=== PATIENT | female | born 2000 | race Two or more races ===

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

== ENCOUNTER 2022-09-27 09:30 | Emergency (ER) | payer SELFPAY ==
[2022-09-27 09:33] VITALS: BP 103/68; PULSE 100; RESP 16; TEMP 36.5; O2SAT 98; BMI 29.9
[2022-09-27 09:48] VITALS: BP 107/63; PULSE 90; RESP 14; TEMP 36.9; O2SAT 95
--- NOTE | 2022-09-27 09:52 | PC.NURSE ---
pt AOx3, reporting N/v since last night. additionally pt reports right breast pain. vitals stable. will CTM
--- NOTE | 2022-09-27 10:03 | ED_ITS ---
HPI - Abdominal Pain General Chief Complaint: Abdominal Pain Stated Complaint: Vomiting/Weakness/R breast pain Time Seen by Provider: 09/27/22 10:00 Source: patient Mode of arrival: ambulatory Limitations: no limitations History of Present Illness HPI narrative: Patient with vomiting all night, states that she vomited x 12 last night. she states that others ate the food and are not vomiting. Patient denies , LMP just finished and her periods have been longer and irregular. In addition she has right breast pain MD elicited complaint: abdominal pain Pertinent past history: none Onset (ago): hour(s) Pain Consistency: intermittent Location: epigastric Severity: mild Quality: cramping Associated symptoms: nausea and vomiting Related Data Previous Rx's Medication Instructions Recorded ondansetron 4 mg disintegrating 4 mg PO Q8H 4 days #12 tabs 09/27/22 tablet pantoprazole 40 mg tablet,delayed 40 mg PO DAILY #20 tabs 09/27/22 release (Protonix) Allergies Allergy/AdvReac Type Severity Reaction Status Date / Time No Known Allergies Allergy Verified 09/27/22 09:38 Review of Systems Review of Systems Yes all other systems are reviewed and are negative Gastrointestinal: Reports abdominal pain and Reports vomiting Skin/Breast: Reports breast pain PMFSH Past Medical History Medical History Patient denies medical problems Social History Social History Alcohol intake: never Smoked in Last 30 Days: No Use of substances other than those prescribed or required for medical reasons: Yes Substance Use Type: Marijuana Advance Directives: No Advance Directives Information Provided: No Patient : No Physical Exam ED Vital Signs: Vital Signs - 24 hr 09/27/22 09:33 09/27/22 09:48 09/27/22 12:00 Temperature 97.7 F 98.5 F 98.8 F Pulse Rate 100 90 84 Respiratory Rate 16 14 16 Blood Pressure 103/68 107/63 103/64 Pulse Oximetry 98 95 100 Oxygen Delivery Method Room Air Room Air Room Air BMI result Body Mass Index 29.9 Const General: healthy appearing Nutritional Appearance: average body habitus Orientation/consciousness: oriented to person and patient oriented x3 Limitations: no limitations HENMT Head: Yes normal to inspection Ears: external ears normal General nose exam: Normal external nose present Mouth: Normal oral and palatal mucosa present and oropharynx normal Throat: Yes posterior oropharynx normal Eyes General: appearance normal, both eyes and all related structures Neck Neck: Yes normal visual inspection Chest Other: right breast with no cyst or erythema or mass Chest palpation & inspection: normal inspection of the chest Resp Auscultation: clear to auscultation bilaterally Cardio Jugular venous distension: no JVD Rate: regular rate Rhythm: regular rhythm Heart sounds: S1 normal heart sound present and S2 normal heart sound present GI Inspection: Yes normal to inspection Palpation (GI): Soft to palpation, nontender and No hepatosplenomegaly present Auscultation: normal bowel sounds General: Yes no CVA tenderness Back/Spine/Pelvis Back: no CVA tenderness Skin General skin exam: no rashes or lesions noted Neuro General: oriented to person and patient oriented x3 Cranial nerves: Yes CN's II-XII intact bilaterally Motor exam (neuro): 5/5 motor strength present throughout Extrem General: Yes normal to inspection Psych Appearance: grossly normal Course Reevaluation(s) Reevaluation #1: tolerating PO, urine not infected not will dc home on zofran and protonix Time: 14:57 Medical Decision Making Differential Diagnosis Differential Diagnoses: The differential diagnosis associated with the presen tation includes (gastritis, vomiting, were all considered) Lab Data MDM Lab Attestation statement: I reviewed the patient's lab results. Labs: Lab Results 09/27/22 09/27/22 Range/Units 13:36 13:36 Urine Color Yellow Urine Appearance Cloudy Urine pH 6.0 (5.0-9.0) Ur Specific [place] >= 1.030 H (1.005-1.025) Urine Protein Trace (Neg-Trace) mg/dL Urine Glucose (UA) Negative (Negative) mg/dL Urine Ketones 15 (Negative) mg/dL Urine Blood Negative (Negative) Urine Nitrite Negative (Negative) Ur Leukocyte Esterase Negative (Negative) Urine Test NEGATIVE (NEGATIVE) Tests considered The following testing was considered but not selected: I considered getting a CBC and chemistries but the patient was tolerating po and looked well Medications Administered Discontinued Medications Generic Name Dose Route Start Last Admin Trade Name Freq PRN Reason Stop Dose Admin Famotidine 20 mg 09/27/22 10:11 09/27/22 10:25 Famotidine 20 Mg Tablet PO 09/27/22 10:12 20 mg ONCE ONE Administration Ondansetron HCl 4 mg 09/27/22 10:11 09/27/22 10:25 Ondansetron Odt 4 Mg Tab.Jndis TRANSLINGU 09/27/22 10:12 4 mg ONCE ONE Administration Discharge Plan Discharge Clinical Impression: Nausea & vomiting, Gastritis Patient Disposition: Home, Self-Care Instructions: Acute Nausea and Vomiting (ED) Prescriptions: New pantoprazole [Protonix] 40 mg tablet,delayed release (DR/EC) 40 mg PO DAILY Qty: 20 0RF ondansetron 4 mg tablet,disintegrating 4 mg PO Q8H 4 Days Qty: 12 0RF Referrals: Shiela Simmons MD [Primary Care Provider] - 1 week
[2022-09-27] MEDS: Famotidine 20 MG TABLET PO (10:25)
[2022-09-27] MEDS: Ondansetron ODT 4 MG TAB.RAPDIS TRANSLINGU (10:25)
--- NOTE | 2022-09-27 10:26 | PC.NURSE ---
PT MEDICATED PER ORDER
[2022-09-27 12:00] VITALS: BP 103/64; PULSE 84; RESP 16; TEMP 37.1; O2SAT 100
--- NOTE | 2022-09-27 12:32 | PC.NURSE ---
pt vitals stable, reporting that she is feeling better. 3/10 right breast pain.
[2022-09-27 13:43] LABS: Appearance Urine Cloudy; Color Urine Yellow; Glucose Urine UA Negative (Negative); Leukocyte Esterase Urine Negative (Negative); Nitrite Urine Negative (Negative); Specific Gravity - Urine >= 1.030 (1.005-1.025); UPreg QC Valid YES; Urine Blood Negative (Negative); Urine Ketones 15 mg/dL (Negative); Urine Pregnancy NEGATIVE (NEGATIVE); Urine Protein Trace mg/dL (Neg-Trace)
[2022-09-27 15:13] VITALS: BP 108/68; PULSE 92; RESP 16; TEMP 36.8; O2SAT 100
== END 2022-09-27 15:13 | disposition home or self-care (01) ==
PROVIDERS: Emergency Provider Emergency Medicine; PCP Pediatrics
DX: K29.70 Gastritis, unspecified, without bleeding (principal); R11.2 Nausea with vomiting, unspecified; Z79.899 Other long term (current) drug therapy
CPT/HCPCS: 81003; 81025; 99283; 99284

== ENCOUNTER 2023-09-19 07:42 | Emergency (ER) | payer MEDICAID, SELFPAY ==
--- NOTE | ~2023-09-19 | XR_ITS ---
EXAMINATION: XR CHEST CLINICAL INFORMATION: Shortness of breath COMPARISON: Chest radiograph from 06/06/2007 TECHNIQUE: Frontal view of the chest was obtained. FINDINGS: Slight elevation the right hemidiaphragm. No pneumothorax. Trachea is midline. Cardiac mediastinal silhouette is not enlarged. No large pleural effusion. Osseous structures are intact. Soft tissues are unremarkable XR/XR chest 1V IMPRESSION: No acute cardiopulmonary process.
[2023-09-19 07:53] VITALS: BP 123/82; BP 130/70; PULSE 105; PULSE 139; RESP 18; TEMP 36.4; O2SAT 95; O2SAT 99; BMI 33.4
--- NOTE | 2023-09-19 08:00 | ECG_ITS ---
Test Reason : sob, chest tightness Blood Pressure : / mmHG Vent. Rate : 097 BPM Atrial Rate : 097 BPM P-R Int : 124 ms QRS Dur : 084 ms QT Int : 344 ms P-R-T Axes : 046 029 027 degrees QTc Int : 436 ms Normal sinus rhythm Normal ECG No previous ECGs available Referred By: Generic ED Physician Electronically Signed By:ZURI MELLO
[2023-09-19 08:36] LABS: Basophils Percent Auto 0.4 % (0-2); PLT CLUMP 1; SCAN SMEAR FLAG 1
[2023-09-19 08:38] LABS: Eosinophils Absolute Auto 0.1 X10*3/uL (0.0-0.4); Eosinophils Percent Auto 0.6 % (0-4); Hematocrit 42.8 % (37.0-47.0); Hemoglobin 14.2 g/dl (12.0-16.0); Imm Gran Abs Auto 0.02 X10*3/uL (0.00-0.03); Imm Gran Pct Auto 0.2 % (0.0-0.4); Lymphocytes Absolute Auto 1.3 X10*3/uL (1.2-4.9); Lymphocytes Percent Auto 16.5 % (20-40); MANUAL DIFF FLAG SCAN; Mean Corpuscular HGB Conc 33.2 g/dl (31.0-35.0); Mean Corpuscular Hemoglobin 29.3 pg (27.0-33.0); Mean Corpuscular Volume 88.2 fL (80.0-98.0); Monocytes Absolute Auto 0.3 X10*3/uL (0.1-1.2); Monocytes Percent Auto 3.9 % (2-11); Neutrophils Absolute Auto 6.4 x10*3/uL (2.0-8.3); Neutrophils Percent Auto 78.4 % (45-73); Red Blood Count 4.85 X10*6/uL (4.20-5.50); Red Cell Distribution Width 12.7 % (11.0-16.0)
[2023-09-19 08:49] LABS: Platelet Count 218 X10*3/uL (160-400); White Blood Count 8.1 X10*3/uL (4.8-10.8)
[2023-09-19 08:50] LABS: SLIDE REVIEW VERIFIED
[2023-09-19 08:51] LABS: Anion Gap 14 (12-20); Blood Urea Nitrogen 12 mg/dL (9-16); Calcium 8.9 mg/dL (8.4-10.2); Carbon Dioxide 23 mmol/L (22-29); Chloride 108 mmol/L (96-108); Creatinine Clr Calc Pharmacy 131.2; Estimated Glomerular Filt Rate > 60; Glucose Random 135 mg/dL (60-115); Potassium 3.6 mmol/L (3.3-5.1); Sodium 141 mmol/L (135-145)
[2023-09-19 08:55] LABS: Troponin-I High Sensitivity < 2.7 ng/L (<3.5-17.0)
[2023-09-19 10:16] LABS: Alanine Aminotransferase 13 U/L (0-31); Albumin Level 4.2 g/dL (3.5-5.0); Alkaline Phosphatase 59 U/L (39-117); Aspartate Amino Transferase 16 U/L (5-31); Bilirubin Direct 0.2 mg/dL (0.0-0.5); Bilirubin Total 0.3 mg/dL (0.0-1.0); Lipase 19 U/L (8-78); Total Protein 7.3 g/dL (6.5-8.0)
[2023-09-19 10:20] LABS: HCG Quantitative < 2 mIU/mL
[2023-09-19 11:20] VITALS: BP 115/74; PULSE 74; RESP 16; TEMP 36.9; O2SAT 100
--- NOTE | 2023-09-19 11:23 | ED_ITS ---
HPI - General Adult General Chief complaint: Dyspnea Stated complaint: CHEST PAIN/TIGHTNESS Time Seen by Provider: 09/19/23 07:49 Source: patient Mode of arrival: ambulatory Limitations: no limitations History of Present Illness HPI narrative: 23 yo female with PMH of anxiety had panic attack today then chest pain she panicked more she feels fine now. She felt short of breath. No OCPs, travel, URI. Admits to stress MD complaint: chest pain Onset (ago): hour(s) (few hours ago) Location: chest Severity: moderate Quality: other (heavy) Pain Consistency: now resolved Relieving factors: none Exacerbating factors: other (stress) Associated symptoms: shortness of breath Related Data Previous Rx's Medication Instructions Recorded ondansetron 4 mg disintegrating 4 mg PO Q8H 4 days #12 tabs 09/27/22 tablet pantoprazole 40 mg tablet,delayed 40 mg PO DAILY #20 tabs 09/27/22 release (Protonix) Allergies Allergy/AdvReac Type Severity Reaction Status Date / Time No Known Allergies Allergy Verified 09/27/22 09:38 Review of Systems 2 Review of Systems: Constitutional : No Weight loss, No Fever, No Chills ENT/Mouth : No sore throat, No Rhinorrhea Eyes: No Eye Pain, No Swelling Cardiovascular : pos Chest Pain, pos SOB, no Dyspnea on Exertion, No Orthopnea, No Edema, No Palpitations Respiratory : No Cough, No Sputum Gastrointestinal : no Nausea, No Vomiting, No Diarrhea, No abdominal Pain, No Hematochezia, No Melena Genitourinary : No Dysuria, No Urinary Frequency Musculoskeletal : No joint pain, No Myalgias, No Joint Swelling Skin : No Skin Lesions, No rash Neuro : No Weakness, No Numbness, No Dizziness, No Headache Psych :pos Anxiety/Panic, No Depression Heme/Lymph: No Bruising, No Lymphadenopathy Endocrine : No Polyuria, No Polydipsia All other systems reviewed and are negative PMFSH Past Medical History Attestation statement: The following information was validated with the patient. Source: old records reviewed Medical History Patient denies medical problems Social History Social History (Updated 09/19/23 @ 12:31 by Elena Reddy DO) Alcohol intake: never Patient Tobacco Use Status: Never used Tobacco Substance Use Type: Marijuana Physical Exam ED Vital Signs: Vital Signs - 24 hr 09/19/23 07:53 09/19/23 11:20 Temperature 97.6 F 98.4 F Pulse Rate 105 H 74 Respiratory Rate 18 16 Blood Pressure 123/82 115/74 Pulse Oximetry 99 100 Oxygen Delivery Method Room Air BMI result Body Mass Index 33.4 Appearance: Alert. Oriented X3. No acute distress. Eyes: Pupils equal, round and reactive to light. ENT: Pharynx normal. Neck: Normal inspection. Neck supple. CVS: Normal heart rate and rhythm. Pulses normal. Respiratory: No respiratory distress. Breath sounds normal. Abdomen: Soft and nontender. Skin: Skin warm and dry. Normal skin color. Normal skin turgor. Extremities: No lower extremity edema. No calf ttp Neuro: Oriented X 3. No motor deficit. No sensory deficit. Course Course Course Narrative: This is an RME: Additional HPI, ROS, PE not included below will be deferred to primary provider. This is a 23-year-old female presenting to the emergency department with complaints of chest tightness which started this morning. She states that when she woke up she felt like she could not breathe in her chest became very tight. She states that this lasted for several minutes and resolved on its own. She states that she is unsure if this was a panic attack as she has never had 1 before. She is feeling well now. Asymptomatic. Vital signs normal, lungs clear to auscultation bilaterally. EKG normal sinus rhythm with no ST elevation or depression. Lab so far look good. Chest x-ray unremarkable. Will perform 2nd troponin test. She has not on control. She has not short of breath or tachycardic. Plan: Repeat troponin and re-evaluation. Medical Decision Making Medical Decision Making [facility] Narrative: 23 yo female with no sig PMH not on OCPs no travel or procedures here with c/o panic attack this AM felt her chest was tight - no fevers or infectious symptoms, PERC negative, distal pulses intact at this time will need trop, CXR, EKG and if negative stable for DC Differential Diagnosis Differential Diagnoses: The differential diagnosis associated with the presentation includes chest pain, anxiety, PERC negative Admission/Observation Consideration of admission/observation: Escalation of care including admission/observation considered trop flat x 2 , PERC Negative, no ACS risk factors stable for DC Lab Data [facility] Lab Attestation statement: I reviewed the patient's lab results. 09/19/23 08:13 09/19/23 08:13 Labs: Lab Results 09/19/23 09/19/23 Range/Units 08:13 11:30 WBC 8.1 (4.8-10.8) X10*3/uL RBC 4.85 (4.20-5.50) X10*6/uL Hgb 14.2 (12.0-16.0) g/dl Hct 42.8 (37.0-47.0) % MCV 88.2 (80.0-98.0) fL MCH 29.3 (27.0-33.0) pg MCHC 33.2 (31.0-35.0) g/dl RDW 12.7 (11.0-16.0) % Plt Count 218 (160-400) X10*3/uL MPV 12.0 (9.4-12.3) fL Immature Gran % (Auto) 0.2 (0.0-0.4) % Neut % (Auto) 78.4 H (45-73) % Lymph % (Auto) 16.5 L (20-40) % [place] % (Auto) 3.9 (2-11) % Eos % (Auto) 0.6 (0-4) % Baso % (Auto) 0.4 (0-2) % Lymph # (Auto) 1.3 (1.2-4.9) X10*3/uL [place] # (Auto) 0.3 (0.1-1.2) X10*3/uL Eos # (Auto) 0.1 (0.0-0.4) X10*3/uL Baso # (Auto) 0.0 (0.0-0.2) X10*3/uL Abs Immat Gran (auto) 0.02 (0.00-0.03) X10*3/uL Absolute Neuts (auto) 6.4 (2.0-8.3) x10*3/uL Absolute Nucleated RBC 0.000 (0.0-0.012) X10*3/uL Nucleated RBC % (auto) 0.0 (0.0-0.2) /100WBC Smear Tech's Comments VERIFIED PT 13.2 (11.1-13.3) SEC INR 1.1 (0.9-1.1) Sodium 141 (135-145) mmol/L Potassium 3.6 (3.3-5.1) mmol/L Chloride 108 (96-108) mmol/L Carbon Dioxide 23 (22-29) mmol/L Anion Gap 14 (12-20) BUN 12 (9-16) mg/dL Creatinine 0.75 (0.5-1.4) mg/dL Estim Creat Clear Calc 131.2 Estimated GFR > 60 Random Glucose 135 H (60-115) mg/dL Calcium 8.9 (8.4-10.2) mg/dL Total Bilirubin 0.3 (0.0-1.0) mg/dL Direct Bilirubin 0.2 (0.0-0.5) mg/dL AST 16 (5-31) U/L ALT 13 (0-31) U/L Alkaline Phosphatase 59 (39-117) U/L Troponin I High Sens < 2.7 < 2.7 (<3.5-17.0) ng/L Total Protein 7.3 (6.5-8.0) g/dL Albumin 4.2 (3.5-5.0) g/dL Lipase 19 (8-78) U/L Beta HCG, Quant < 2 mIU/mL Independent Interpretation I performed an independent interpretation of an: EKG and Plain X-Ray (normal ) Interpretation: Rate: 97 Rhythm: NSR [place]: normal Normal P waves. Normal GIRISH. Normal QRS complex. ST T wave : normal no KRISTEN qTC: normal prior studies: no acute ischemia The study has been interpreted contemporaneously by me. . Independent Historian Clinical information obtained from an independent historian. History obtained from or confirmed by: Friend External Record Review External record reviewed: Outpatient record Discharge Plan Discharge Clinical Impression: Atypical chest pain, Panic attack Instructions: Chest Pain (ED), Anxiety (ED) Additional Instructions: EKG, chest xray, basic labs normal return for any worsening symptoms or concerns. Prescriptions: No Action pantoprazole [Protonix] 40 mg tablet,delayed release (DR/EC) 40 mg PO DAILY Qty: 20 0RF ondansetron 4 mg tablet,disintegrating 4 mg PO Q8H 4 Days Qty: 12 0RF Stand Alone Forms: Work/School Release
[2023-09-19 11:42] LABS: INTERNATIONAL NORM RATIO 1.1 (0.9-1.1); Prothrombin Time 13.2 SEC (11.1-13.3)
[2023-09-19 11:59] LABS: Troponin-I High Sensitivity < 2.7 ng/L (<3.5-17.0)
[2023-09-19 13:19] VITALS: BP 118/81; PULSE 78; RESP 16; TEMP 36.8; O2SAT 100
== END 2023-09-19 13:20 | disposition home or self-care (01) ==
PROVIDERS: Physician Assistant Medical; Emergency Provider Emergency Medicine; PCP Pediatrics
DX: R07.89 Other chest pain (principal); F41.0 Panic disorder [episodic paroxysmal anxiety]
CPT/HCPCS: 36415; 71045; 80048; 80076; 83690; 84484; 84702; 85025; 85610; 93005; 99283

== ENCOUNTER → 2023-09-19 08:00 | Outpatient (BNV) | payer MEDICAID, SELFPAY | PROVIDERS: Emergency Provider Emergency Medicine; PCP Pediatrics; Visit Provider Internal Medicine | DX: R07.89 Other chest pain (principal) | CPT/HCPCS: 93010 ==

== ENCOUNTER 2024-02-19 18:03 | Outpatient (REF) | payer MEDICAID, SELFPAY ==
[2024-02-20 03:27] LABS: CT PCR NOT DETECTED (Not Detect.); NG PCR NOT DETECTED (Not Detect.)
[2024-02-20 10:39] LABS: Bacterial Vaginosis PCR POSITIVE (Negative); Candida Group PCR DETECTED (Not Detect); Candida glab krusei PCR NOT DETECTED (Not Detect); Trichomonas vaginalis PCR NOT DETECTED (Not Detect)
== END 2024-02-19 18:04 | disposition home or self-care (01) ==
LOC: HO.HHCLNP 18:03
PROVIDERS: Visit Provider Internal Medicine
DX: B37.9 Candidiasis, unspecified (principal)
CPT/HCPCS: 0352U; 87491; 87591

== ENCOUNTER 2024-10-17 14:43 | Outpatient (REF) | payer MEDICAID, SELFPAY ==
--- OUTSIDE RECORDS SUMMARY | 2024-10-17 14:56 | XMS_ITS | Encounter Summary ---
Author Organization [employer] Address [address] [place] [address] Care Team Providers Care Feed Grinder Name Role Phone Shiela Simmons MD Primary Care Provider [phone] Reason for Visit * Reason Onset Date Comments ER Follow-up 09/20/2023 Encounter Details Date Type Department Care Team ([facility] Contact Info) Description 09/20/2023 Telephone [facility] MEDICINE [address] [place] [address] Shiela Simmons MD [address] [place] [address] ER Follow-up Social History Tobacco Use Types Packs/Day Years Used Date Smoking Tobacco: Never Passive Smoke Exposure: Never Smokeless Tobacco: Never Depression Answer Date Recorded Patient Health Questionnaire-9 Score 4 08/27/2023 Patient Health Questionnaire-9 Score 4 08/27/2023 Last PHQ-9: Questionnaire Data Not on file 0 08/27/2023 Depression Answer Date Recorded Patient Health Questionnaire-2 Score 2 08/27/2023 Comments Unknown Sex and Gender Information Value Date Recorded Sex Assigned at Female 05/01/2022 10:16 AM EDT Legal Sex Female 10:16 AM EDT Gender Identity Female 05/01/2022 10:16 AM EDT Sexual Orientation Straight 05/01/2022 10 :16 AM EDT documented as of this encounter Miscellaneous Notes * Telephone Encounter - Wing Grover RN - 09/20/2023 1:16 PM EDT Tc to pt regarding ED visit on 09/18. Pt reports that morning feeling cold and could not breath. Currently feeling a lot better and has been staying at home. Scheduled pt with PCP for 09/24 at 9 am. Ptasked to cancel appt on 09/25 for PAP smear due to work. Did so and pt stated she would call to reschedule that appt. Pt verbalizes understanding and agreement with plan. * Telephone Encounter - Aida Maki - 09/20/2023 11:43 AM EDT Tc from pt returning call and requesting a call back. * Telephone Encounter - Wing Grover RN - 09/20/2023 11:20 AM EDT Tc to pt regarding ED visit on 09/18. Unable to reach pt, left message for pt to call back. * Telephone Encounter - Jonatan Perez - 09/20/2023 11:13 AM EDT Patient calling to report ED visit on: Date: 09/19/23 Hospital: [facility] Seen for: Anxiety Attack Patient advised will forward to team nurse for follow up documented in this encounter Plan of Treatment Upcoming Encounters Date Type Department Care Team (Late st Contact Info) Description 12/02/2024 9:15 AM EDT Office Visit [facility] P[facility] [address] [place] [address] Onelia Godwin MD [address] [place] [address] documented as of this encounter Visit Diagnoses Not on filedocumented in this encounter Additional Health Concerns Assessment Noted Time PHQ-9 Depression Total Score: 4 08/27/19 9:12 AM EST documented as of this encounter Care Teams Feed Grinder Relationship Specialty Start Date End Date Shiela Simmons MD [address] [place] [id number] PCP - General Family Medicine 08/31/20 documented as of this encounter
--- OUTSIDE RECORDS SUMMARY | 2024-10-17 14:56 | XMS_ITS | Encounter Summary ---
Author Organization [facility] Address [address] [place] [address] [address] [place] [address] Care Team Providers Care Motion Picture Cameraman Name Role Phone Shiela Simmons MD Primary Care Provider [phone] Reason for Visit * Reason Onset Date Comments Nurse Triage 08/06/2024 Encounter Details Date Type Department Care Team ([facility] st Contact Info) Description 08/06/2024 Telephone [facility] [address] [place], [place] [phone] Shiela Simmons MD [address] [place] [address] Nurse Triage Social History Tobacco Use Types Packs/Day Years Used Date Smoking Tobacco: Never Passive Smoke Exposure: Never Smokeless Tobacco: Never Depression Answer Date Recorded Patient Health Questionnaire-9 Score 16 12/10/2023 Patient Health Questionnaire-9 Score 16 12/10/2023 Last PHQ-9: Questionnaire Data Not on file 0 12/10/2023 Depression Answer Date Recorded Patient Health Questionnaire-2 Score 6 12/10/2023 Comments Unknown Sex and Gender Information Value Date Recorded Sex Assigned at Female 05/01/2022 10:16 AM EDT Legal Sex Female 10:16 AM EDT Gender Identity Female 05/01/2022 10:16 AM EDT Sexual Orientation Straight 05/01/2022 10 :16 AM EDT documented as of this encounter Miscellaneous Notes * Telephone Encounter - Raquel Jimenes - 08/06/2024 2:30 PM EST Symptom: Nausea But No Vomiting and pale skin Outcome: Schedule an appointment to be seen within 3 days Reason: Caller denied all higher acuity questions The caller accepted this outcome. documented in this encounter Plan of Treatment Upcoming Encounters Date Type Department Care Team (Late st Contact Info) Description 12/02/2024 9:15 AM EDT Office Visit [facility] MED [facility] PEDS [address] [place] [address] Onelia Godwin MD [address] [place] [address] documented as of this encounter Visit Diagnoses Not on filedocumented in this encounter Additional Health Concerns Assessment Noted Time PHQ-9 Depression Total Score: 16 024 3:12 PM EDT documented as of this encounter Care Teams Motion Picture Cameraman Relationship Specialty Start Date End Date Shiela Simmons MD [address] [place] [address] PCP - General Family Medicine 08/31/20 documented as of this encounter
--- OUTSIDE RECORDS SUMMARY | 2024-10-17 14:56 | XMS_ITS | Encounter Summary ---
Author Organization [facility] Address [address] [place] [address] [address] [place] [address] Care Team Providers Care Honey Liquefier Name Role Phone Shiela Simmons MD Primary Care Provider [phone] Encounter Details Date Type Department Care Team (Latest Contact Info) Description 10/17/2024 Travel Social History Tobacco Use Types Packs/Day Years [...] AM EDT documented as of this encounter Plan of Treatment Upcoming Encounters Date Type Department Care Team (Late st Contact Info) Description 12/02/2024 9:15 AM EDT Office Visit [facility] [address] [place] [address] Onelia Godwin MD [address] [place] [address] documented as of this encounter Visit Diagnoses Not on filedocumented in this encounter Additional Health Concerns Assessment Noted Time PHQ-9 Depression Total Score: 16 024 3:12 PM EDT documented as of this encounter Care Teams Honey Liquefier Relationship Specialty Start Date End Date Shiela Simmons MD [address] [place] [id number] PCP - General Family Medicine 08/31/20 documented as of this encounter
--- OUTSIDE RECORDS SUMMARY | 2024-10-17 14:56 | XMS_ITS | Clinical Summary ---
Author Organization [employer] Address [address] [place] [address] 7[address] [place] [address] Care Team Providers Care Appliquer Name Role Phone Shiela Simmons MD Primary Care Provider [phone] Allergies Active Allergy Reactions Criticality Noted Date Comments Ibuprofen 12/27/2011 Other Reaction(s): itchy eyes Medications * This document contains information received from the source organization and may not represent a complete record from that organization. tretinoin (Retin-A) 0.1 % cream apply by topical route every day to the affected area(s) 09/21/19 22 Active cholecalcifero l (Vitamin D-3) 50 MCG (1999 UT) capsule Take 1 capsule by mouth at bed time. 09/15/19 22 Active QUEtiapine (SEROquel) 100 MG tablet Take 1 tablet (100 mg) by mouth at bedtime. 30 tablet 2 09/27/19 25 Active hydrOXYzine pamoate (Vistaril) 25 MG capsule Take 1 capsule (25 mg) by mouth every 6 (six) hours if needed for anxiety. 60 capsule 3 09/27/19 25 Active sulfamethoxazo le-trimethopri m (Bactrim DS) 800-160 MG tablet Take 1 tablet by mouth every 12 (twelve) hours. 05/25/20 22 025 Discontinued(Th erapy completed) QUEtiapine (SEROquel) 100 MG tablet Take 1 tablet (100 mg) by mouth at bedtime. 30 tablet 2 12/10/19 24 025 Discontinued(Re order (will not trigger notification to Pharmacy)) hydrOXYzine pamoate (Vistaril) 25 MG capsule Take 1 capsule (25 mg) by mouth every 6 (six) hours if needed for anxiety. 60 capsule 12/10/19 24 025 Discontinued(Re order (will not trigger notification to Pharmacy)) tiZANidine (Zanaflex) 2 MG tabletIndicati ons:Muscle spasm,Neck pain Take 1 tablet (2 mg) by mouth every 6 (six) hours if needed for muscle spasms for up to 10 days. 30 tablet 05/07/20 24 025 Discontinued(Th erapy completed) Active Problems Problem Noted Date Diagnosed Date Vaginal discharge 02/19/2024 Assessment & Plan (02/19/2024 10:21 AM EDT): I will treat empirically for yeast infection BV and CG ordered patient will be contacted with results Patient declines other STI tests Patient declines control methods with exception of male condoms, I will give patient condoms today Missed period 02/19/2024 Assessment & Plan (02/19/2024 10:22 AM EDT): Negative in office test Anxious mood 12/10/2023 Assessment & Plan (12/10/2023 3:44 PM EDT): Discussed current medications. Referral to Psychiatrist for further evaluation. Prescribing Seroquel to drink at night and Vistaril for symptoms. Relevant Medication Quetiapine (Seroquel) 100 MG Tablet Hydroxyzine Pamoate (Vistaril) 25 MG Capsule Social anxiety disorder 09/25/2023 Assessment & Plan (12/21/2023 1:53 PM EDT): During IBH Consult Ambreen presenting with excessive worry/anxiety, difficulty controlling worry, restless/keyed up/On edge, easily fatigued, irritability, and sleep disturbance difficulty falling asleep, excessive fear meeting unfamiliar people, anxiety caused by social interactions, feeling embarrassed and thoughts of being judged and rejected by others, social interactions provoke severe anxiety ; for a period of 18+ mo, for all symptoms in the context of college. Ambreen dropped out of college due to severity of sxs. She started medication after last medical appointment. Pt reports feeling a slight improvement of anxiety sxs and sleeping better most nights. Lack of family support identified as trigger. Ambreen was provided with active listening and open-ended questions. Pt explored different grounding techniques that she might be interested in doing such as journaling and walking outdoors. Would like to be connected with therapy services and continue current medication (see PCP note). PLAN: (check all that apply) Continue with current services (defined as services in the past 12 months) . Pt referred to [facility] in [place]. Assessment & Plan (12/18/2023 11:03 AM EDT): During IBH Consult Ambreen presenting with excessive worry/anxiety, difficulty controlling worry, restless/keyed up/On edge, easily fatigued, difficulty concentrating/Mind going blank , irritability, and sleep disturbance difficulty falling asleep and difficulty staying asleep excessive fear meeting unfamiliar people, anxiety caused by social interactions, feeling embarrassed and thoughts of being judged and rejected by others, social interactions provoke severe anxiety ; for a period of 18+ mo, for all symptoms in the context of college. .Ambreen had to drop out of college due to experiencing severe anxiety. She's currently living with her mom, step-dad and brother. Severe anxiety is becoming a barrier when interacting with new people or new environments. Lack of family support also identified as barrier. PLAN: (check all that apply) New/Additional Services needed Off-site services for . Pt will be refer to [facility] for sooner appointments for OP individual therapy and psychopharmacology. Assessment & Plan (09/25/2023 11:19 AM EDT): During IBH Consult Ambreen presenting with excessive worry/anxiety, difficulty controlling worry, and sleep disturbance difficulty falling asleep excessive fear meeting unfamiliar people, anxiety caused by social interactions, feeling embarrassed and thoughts of being judged and rejected by others, social interactions provoke severe anxiety ; for a period of 18+ mo, for all symptoms in the context of family issues and college. Ambreen dropped college due to experiencing severe anxiety. She's currently living with her mom, step-dad and brother. Engaged in self-harm in 2022 as a way of coping with emotional distress. Anxiety is becoming a barrier when interacting with new people or new environments. PLAN: (check all that apply) Behavioral Health Integration Plan Internal Follow up with [facility] Patient Self Plan Patient to utilize skills provided in intervention , Patient to reach out to [facility] team as needed, and Patient to reach out to [facility] as needed. Ambreen prefers to be seen by clinician and evaluate future referral for OP individual therapy. Next appointment will be on 10/22. Obesity 06/22/2014 Encounters * This document contains information received from the source organization and may not represent a complete record from that organization. Date Type Department Care Team Description 10/17/2024 10:45 AM EDT Procedure Visit [facility] [address] [place] [address] Shiela Simmons MD Encounter for gynecological examination with Papanicolaou smear of cervix (Primary Dx) 10/17/2024 Travel 09/26/2024 9:45 AM EDT Office Visit [facility] [address] [place] [address] Shiela Simmons MD Chronic right shoulder pain (Primary Dx); Dietary counseling; Exercise counseling; Social anxiety disorder; Acne vulgaris 09/26/2024 Travel 09/19/2024 Patient Outreach [facility] [address] [place] [address] Shiela Simmons MD Pre-visit Planning (SDOH unable to reach LVM) 09/12/2024 Population Health Risk Score [facility] () Department [address] [place] [address] [id number] Provider, Population Health Generic 08/06/2024 5:20 PM EST Office Visit [facility] [address] [place] [address] Eliezer Seymour MD Gastroenteritis (Primary Dx) 08/06/2024 Telephone [facility] [address] [place] [address] Shiela Simmons MD Nurse Triage 07/31/2024 Orders Only [facility] [address] [place] [address] Aniya Jensen RN 07/25/2024 Telephone [facility] [address] [place] [address] Shiela Simmons MD Referral 07/25/2024 Telephone [facility] [address] [place] [address] Shiela Simmons MD from Last 3 Months Immunizations Name Administration Dates Next Due DTaP 09/19/2005, 3,02/26/2002,01/16,2001 HPV 9-Valent 12/23/2015 HPV, Quadrivalent 06/22/2014,11/06/2012 Hep A, ped/adol, 2 dose 11/06/2012 Hep A, ped/adol, 3 dose 06/10/2010 Hep B, Adolescent or Pediatric 07/11/2002,2001,2001 Hib (HbOC) 10/10/2002, 2,02/26/2002,09/03 IPV 09/19/2005, 2,2001,09/03 Influenza live intranasal qu adrivalent LIAV4 06/22/2014 Influenza, IIV3, injectable 09/04/2011, 0,06/07/2009 MMR 09/19/2005,07/11/2002 Meningococcal MCV4P ACYW-135 02/07/2018,11/07/19 13 Pneumococcal Conjugate PCV 7 10/10/2002, 02/26/2002,01/16/2002,09/03 Tdap 11/06/2012 Varicella 06/07/2009,07/11/2002 Social History Tobacco Use Types Packs/Day Years Used Date Smoking Tobacco: Never Passive Smoke Exposure: Never Smokeless Tobacco: Never Tobacco Cessation:Counseling Given: Not Answered Depression Answer Date Recorded Patient Health Questionnaire-9 [...] Orientation Straight 05/01/2022 10 :16 AM EDT Last Filed Vital Signs Vital Sign Reading Time Taken Comments Blood Pressure 114/74 10/17/2024 10:49 AM EDT Pulse 76 10/17/2024 10:49 AM EDT Temperature 36.6 ??C (97.9 ??F) 10/17/2024 10:49 AM E DT Respiratory Rate 20 10/17/2024 10:49 AM EDT Oxygen Saturation 98% 09/26/2024 9:51 AM EDT Inhaled Oxygen Concentration - - Weight 77.6 kg (171 lb) 10/17/2024 10:49 AM EDT Height 165.1 cm (5' 5 ) 10/17/2024 10:49 AM EDT Body Mass Index 28.46 10/17/2024 10:49 AM EDT Plan of Treatment Upcoming Encounters Date Type Department Care Team ([facility] st Contact Info) Description 12/02/2024 9:15 AM EDT Office Visit [facility] [address] [place] [address] Onelia Godwin MD [address] [place] [address] Health Maintenance Due Date Last Done Comments SDOH Screening 2001 Hepatitis A Vaccines (2 of 2 - 2-dose series) 05/09/2013 11/06/2012 Alcohol/Substance Use Screening 2013 Pap Smear 2022 DTaP/Tdap/Td Vaccines (7 - Td or Tdap) 11/06/2022 11/06/2012, 09/19/2005, 01/07/2003, Additional history exists COVID-19 Vaccine ( season) 2024 06/10/2021 Influenza Vaccine (#1) 2024 4, 09/04/2011, 06/10/2010, Additional history exists Depression Monitoring 06/10/2024 12/10/2023, 024 Depression Screening 12/09/2024 12/10/2023, 12/10/19 24 Chlamydia and Gonorrhea Screening 07/25/2025 07/25/2024, 02/19/2024, 05/22/2022 Family Planning (PISQ) 09/26/2025 09/26/2024 Tobacco Screening 09/26/2025 09/26/2024 Lipid Panel 04/13/2026 04/13/2021 Zoster Vaccines (1 of 2) 2051 RSV Patients and Patients Aged 60 years or older (1 - 1-dose 75+ series) 2076 Hepatitis B Vaccines Completed 07/11/2002, 02/26/2002, 2001 HIB Vaccines Completed 10/10/2002, 04/01, 02/26/2002, Additional history exists Pneumococcal Vaccine: Pediatrics (0 to 5 Years) and At-Risk Patients (6 to 49) Years) Aged Out 10/10/2002, 02/26/2002, 01/16/2002, Additional history exists No longer eligible based on patient's age to complete this topic IPV Vaccines Completed 09/19/2005, 12/30, 2001, Additional history exists HPV Vaccines Completed 12/23/2015, 06/02, 11/06/2012 Meningococcal Vaccine Completed 02/07/2018, 013 HIV Screening Completed 07/25/2024 Hepatitis C Screening Completed 07/25/2024 RSV under 20 months Aged Out No longe r eligible based on patient's age to complete this topic Rotavirus Vaccines Aged Out No longer eligible based on patient's age to complete this topic Procedures Procedure Name Priority Date/Time Associated Diagnosis Comments HIV ANTIBODY/ANTIGEN ([place] [facility]) Routine 07/25/2024 HEPATITIS C ANTIBODY ([place] [facility]) Routine 07/25/2024 SYPHILIS ABS ([facility]) Routine 07/25/2024 CHLAMYDIA/GONORRHEA VAGINAL SWAB ([place] [facility]) Routine 07/25/2024 LIPID PANEL, STANDARD Routine 04/13/2021 10:53 AM EDT from Last 3 Months or Most Recently Relevant to Health Maintenance Results * Chlamydia/Gonorrhea Vaginal Swab ([place] [facility]) (07/25/2024) Pathologist [facility] Chlamydia Vaginal Swab Negative Negative, Indeterminate, None Detected, Invalid, Specimen unsatisfactory for evaluation, Weakly Positive Gonorrhea Vaginal Swab Negative Negative, Indeterminate, None Detected, Invalid, Specimen unsatisfactory for evaluation, Weakly Positive Swab Vaginal structure / Unknown 07/25/2024 Result [facility] Provider MD LAB MICROBIOLOGY - GENERA L ORDERABLES Final Result * Syphilis Antibodies ([facility]) (07/25/2024) Pathologist [facility] Syphilis Abs Nonreactive Borderline, Nonreactive, Weakly Reactive, Inconclusive, Specimen unsatisfactory for evaluation Blood Venous blood specimen / Unknown 07/25/2024 Result [facility] Provider MD LAB BLOOD ORDERABLES Lucy l Result * Hepatitis C Antibody ([facility]) (07/25/2024) [facility] Hepatitis C Ab Nonreactive Blood 07/25/2024 Result [facility] Provider MD LAB BLOOD ORDERABLES Lucy l Result * HIV Ab/Ag ([facility]) (07/25/2024) [facility] HIV Ag/Ab Nonreactive Blood 07/25/2024 Result [facility] Provider MD LAB BLOOD ORDERABLES Lucy l Result * (ABNORMAL) LIPID PANEL, STANDARD (04/13/2021 10:53 AM EDT) [facility] Chol/HDLC Ratio 3.5 <5.0 (calc) [facility] Cholesterol, Total 157 <170 mg/dL [facility] HDL Cholesterol 45(L) >45 mg/dL [facility] LDL Cholesterol 93 <110 mg/dL (calc) [facility] Comment: LDL-C is now calculated using the Noel ?? calculation, which is a validated novel method providing ?? better accuracy than the Friedewald equation in the ?? estimation of LDL-C. ?? Derrick JOSHI et al. APRIL. 2013;310(19): 0984-1486 ?? (http://education.Drillinginfo.com/faq/EGN648) Non-HDL Cholesterol 112 <120 mg/dL (calc) [facility] Comment: For patients with diabetes plus 1 major ASCVD risk ?? factor, treating to a non-HDL-C goal of <100 mg/dL ?? (LDL-C of <70 mg/dL) is considered a therapeutic ?? option. Triglycerides 92(H) <90 mg/dL [facility] 04/13/2021 10:5 3 AM EDT us Shiela Simmons MD LAB BLOOD ORDERABLES Final Re sult [facility] [address] from Last 3 Months or Most Recently Relevant to Health Maintenance Insurance [employer] Care Teams Appliquer Relationship Specialty Start Date End Date Shiela Simmons MD [address] [place] [address] PCP - General Family Medicine 08/31/20
--- OUTSIDE RECORDS SUMMARY | 2024-10-17 14:56 | XMS_ITS | Encounter Summary ---
Author Organization [employer] Address [address] [facility] [address] [place] [address] Care Team Providers Care Diesel Stationary Engineer Name Role Phone Shiela Simmons MD Primary Care Provider [phone] Reason for Visit * Reason Onset Date Comments Nurse Triage 05/07/2024 Encounter Details Date Type Department Care Team ([facility] st Contact Info) Description 05/07/2024 Telephone [facility] [address] [place] [address] Shiela Simmons MD [address] [place] [address] Nurse Triage Social History Tobacco Use Types [...] encounter Miscellaneous Notes * Telephone Encounter - Lisa Will RN - 05/07/2024 9:54 AM EST Triage call Pt reports right shoulder pain which has become much worse lately. Pt reports this has been a chronic problem and Pt has taken PT for this in the past. Pt reports possible over use of theshoulder caused this exacerbation of pain. Pt reports unable to lift arm up to shoulder level and has some numbness in the right arm at times. Pt uses tiger balm for some relief and occasional tylenol. Pt will take edible CBD gummi , 30mg, at night to help for sleep and can't sleep on that right side. Pt reports slight swelling at times, no redness or warmth at joint. ASK apt today in [facility] at 300[facility]. Pt is advised to try heat or ice on the shoulder for relief of pain. Pt agrees with disposition . Insurance is verified as active prior to booking. Protocol Used: Shoulder Pain (Adult) Protocol-Based Disposition: See in Office or Video Visit Today or Tomorrow Video visit not offered Positive Triage Questions: * Patient wants to be seen * Shoulder pain is a chronic symptom (recurrent or ongoing AND present > 4 weeks) * All higher-acuity triage questions were negative Care Advice Discussed: * Reassurance and Education - Shoulder Pain * Pain Medicines * Pain Medicines - Extra Notes and Warnings * Reasons To Call Back - Chest pain or difficulty breathing occurs - Moderate pain (such as interferes with normal activities) lasts over 3 days - Mild pain lasts over 7 days - You become worse * Use a Cold Pack for Pain * Use Heat After 48 Hours for Pain * Telephone Encounter - Waylon Lee - 05/07/2024 9:34 AM EST Symptom: Shoulder Pain - Not From Injury Outcome: Schedule an urgent appointment (within 1 hour) or talk to a nurse or provider soon Reason: Severe pain now The caller accepted this outcome. documented in this encounter Plan of Treatment Upcoming Encounters Date Type Department Care Team (Late st Contact Info) Description 12/02/2024 9:15 AM EDT Office Visit [facility] [address] [place] [address] Onelia Godwin MD [address] [place], [place] [phone] documented as of this encounter Visit Diagnoses Not on filedocumented in this encounter Additional Health Concerns Assessment Noted Time PHQ-9 Depression Total Score: 16 024 3:12 PM EDT documented as of this encounter Care Teams Diesel Stationary Engineer Relationship Specialty Start Date End Date Shiela Simmons MD [address] [place] [address] PCP - General Family Medicine 08/31/20 documented as of this encounter
--- OUTSIDE RECORDS SUMMARY | 2024-10-17 14:56 | XMS_ITS | Encounter Summary ---
Author Organization [email or web address] Address [address] [place] [address] [address] [place] [address] Care Team Providers Care Truck Terminal Manager Name Role Phone Shiela Simmons MD Primary Care Provider Encounter Details Date Type Department Care Team (Latest Contact Info) Description 10/17/2024 10:45 AM EDT Procedure Visit [facility] [address] [place], [place] [id number] Shiela Simmons MD [address] [place] [address] Encounter for gynecological examination with Papanicolaou smear of cervix (Primary Dx) Social History Tobacco Use Types Packs/Day Years [...] AM EDT documented as of this encounter Last Filed Vital Signs Vital Sign Reading Time Taken Comments Blood Pressure 114/74 10/17/2024 10:49 AM EDT Pulse 76 10/17/2024 10:49 AM EDT Temperature 36.6 ??C (97.9 ??F) 10/17/2024 10:49 AM E DT Respiratory Rate 20 10/17/2024 10:49 AM EDT Oxygen Saturation - - Inhaled Oxygen Concentration - - Weight 77.6 kg (171 lb) 10/17/2024 10:49 AM EDT Height 165.1 cm (5' 5 ) 10/17/2024 10:49 AM EDT Body Mass Index 28.46 10/17/2024 10:49 AM EDT documented in this encounter Plan of Treatment Upcoming Encounters Date Type Department Care Team (Late st Contact Info) Description 12/02/2024 9:15 AM EDT Office Visit [facility] [address] [place] [address] Onelia Godwin MD [address] [place] [address] Scheduled Orders Name Type Priority Associated Diagnoses Orde r Schedule Pap Smear Pathology and Cytology Routine Encounter for gynecological examination with Papanicolaou smear of cervix Ordered: 10/17/2024 documented as of this encounter Visit Diagnoses Diagnosis Encounter for gynecological examination with Papanicolaou smear of cervix- Primary documented in this encounter Additional Health Concerns Assessment Noted Time PHQ-9 Depression Total Score: 16 024 3:12 PM EDT documented as of this encounter Care Teams Truck Terminal Manager Relationship Specialty Start Date End Date Shiela Simmons MD [address] [place] [address] PCP - General Family Medicine 08/31/20 documented as of this encounter
== END 2024-10-17 14:44 | disposition home or self-care (01) ==
LOC: HO.LNP 14:43
PROVIDERS: Visit Provider Pediatrics
DX: Z01.419 Encounter for gynecological examination (general) (routine) without abnormal findings (principal)
CPT/HCPCS: 88175